=== PATIENT | male | born 1950 | race Caucasian/White ===

== ENCOUNTER 2017-02-03 19:07 | Emergency (ER) | payer MEDICARE, OTHER ==
[2017-02-03 19:19] VITALS: BP 150/84; BMI 42.9
--- NOTE | 2017-02-03 20:45 | PDOC ---
History of Present Illness - General Chief Complaint: Pain, Acute Stated Complaint: BACK PAIN Time Seen by Provider: 02/03/17 19:49 History Source: Patient Exam Limitations: No Limitations - History of Present Illness Initial Comments: 02/03/17 20:54 Chief complaint: Left shoulder and left lateral neck pain History of present illness: Patient is a 66-year-old male with a history of non- insulin-dependent diabetes, hypertension, here today complaining of left shoulder and left lateral neck pain for 20 days that is worsening today. Patient reports that pain is worse with movement of his left shoulder or left lateral neck when turning it towards the left. Patient denies any heavy lifting or any strenuous activities. Patient drives a taxi. Patient has not taken anything for pain. Patient denies any numbness of his left arm or tingling. He denies any shortness of breath. Pt.'s states that he snores a lot at night and use to have a CPAP machine. Timing/Duration: getting worse Severity: moderate (left shoulder, lateral neck for 20 days worse today) Associated Symptoms: reports: denies symptoms Past History - Past Medical History Allergies/Adverse Reactions: Allergies Allergy/AdvReac Type Severity Reaction Status Date / Time No Known Allergies Allergy Verified 02/03/17 19:20 Home Medications: Ambulatory Orders Losartan Potassium 25 mg PO DAILY 02/03/17 Metformin HCl [Glucophage -] 1,000 mg PO BID 02/03/17 Naproxen [Naprosyn -] 500 mg PO BID PRN #14 tablet 02/03/17 Diabetes: Yes (non insulin dependent) HTN: Yes Suicide Attempt (Hx): No - Immunization History Td Vaccination: Yes TDAP Vaccination: Yes Immunization Up to Date: Yes - Psycho/Social/Smoking Cessation Hx Anxiety: No Suicidal Ideation: No Smoking Status: No Smoking History: Never smoked Years of Tobacco Use: 0 Have you smoked in the past 12 months: No Number of Cigarettes Smoked Daily: 0 Cigars Per Day: 0 Information on smoking cessation initiated: No Hx Alcohol Use: No Drug/Substance Use Hx: No Substance Use Type: None Hx Substance Use Treatment: No Review of Systems - Review of Systems Able to Perform ROS?: Yes Constitutional: No: Symptoms Reported HEENTM: No: Symptoms Reported Respiratory: No: Symptoms reported Cardiac (ROS): No: Symptoms Reported ABD/GI: No: Symptoms Reported : No: Symptoms Reported Musculoskeletal: Yes: Joint Pain, Muscle Pain (left shoulder upper arm worse with movement ), Neck Pain (left lateral neck ) Integumentary: No: Symptoms Reported Neurological: No: Symptoms reported *Physical Exam - Vital Signs Last Vital Signs Temp Pulse Resp BP Pulse Ox 150/84 98 02/03/17 19:15 02/03/17 19:15 - Physical Exam General Appearance: Yes: Appropriately Dressed Neck: positive: Tender (left lateral ), Tender lateral (left lateral ). negative: Decreased range of motion, Lymphadenopathy (R), Lymphadenopathy (L), Rigidity, Tender midline Respiratory/Chest: positive: Lungs Clear, Normal Breath Sounds. negative: Chest Tender, Respiratory Distress Cardiovascular: positive: Regular Rhythm, Regular Rate, S1, S2 Musculoskeletal: positive: Normal Inspection. negative: CVA Tenderness, CVA Tenderness (R), CVA Tenderness (L), Vertebral Tenderness Extremity: positive: Normal Capillary Refill, Normal Inspection, Normal Range of Motion, Tender (left shoulder). negative: Swelling Integumentary: positive: Normal Color Neurologic: positive: Alert, Normal Response, Motor Strength 5/5 (upper extremities), Responsive. negative: Respond to painful stimul Procedures - Consent Consent obtained: From Patient - Splinting Progress: 02/05/17 00:10 shoulder immobilizer left arm/shoulder 02/05/17 00:11 Medical Decision Making - Medical Decision Making 02/03/17 21:03 Patient is a 66-year-old male with a history of [id number] diabetes, hypertension, here today complaining of left shoulder and left lateral neck pain for 20 days that is worsening today. Patient reports that pain is worse with movement of his left shoulder or left lateral neck when turning it towards the left. Patient denies any heavy lifting or any strenuous activities. Patient drives a taxi. Patient has not taken anything for pain. Patient denies any numbness of his left arm or tingling. He denies any shortness of breath. Pt.'s states that he snores a lot at night and use to have a CPAP machine. 02/03/17 22:01 left lateral neck pain left shoulder pain PLAN: xray left shoulder no acute abnormality xray spine cervical Straightening of normal cervical curvature hypertrophy of uncinate process of vertebral body, spondylolisthesis of C4-C5, 5-C6, C6-C7. Per Dr. Chaparro toradol 60 mg IM now naprsyn 500 mg bid prn pain follow up with Dr. Dobbins here in 2 days 02/05/17 00:11 *DC/Admit/Observation/Transfer Diagnosis at time of Disposition: Neck pain on left side Degenerative joint disease of cervical spine Qualifiers: Spinal osteoarthritis complication: with radiculopathy Qualified Code(s): M47.22 - Other spondylosis with radiculopathy, cervical region Shoulder pain, left Qualifiers: Chronicity: unspecified Qualified Code(s): M25.512 - Pain in left shoulder - Discharge Dispostion Disposition: HOME Condition at time of disposition: Stable - Prescriptions Prescriptions: Naproxen [Naprosyn -] 500 mg PO BID PRN #14 tablet PRN Reason: Pain - Referrals Referrals: Kathy Daniels MD [Primary Care Provider] - Lucho Dobbins MD [Staff Physician] - - Patient Instructions Additional Instructions: Follow-up with orthopedist on 02/05/[address] Dobbins wear orthoglass splint during the day take off at night return to emergency room for worsening pain or numbness of left arm avoid any strenuous activities or exercise patient voiced understanding of discharge instructions and all questions were answered THANK YOU for coming to [facility] Emergency room for you medical needs Seguimiento con ortopedista el 02/05/[address] Dobbins usar frula ortopdica andreina el da despegue por la noche regreso a la curry de emergencias para empeorar dolor o entumecimiento del brazo dre evitar cualquier actividad extenuante o ejercicio el paciente expres la comprensin de las instrucciones de sybil y todas las preguntas fueron contestadas CARLA por venir a la curry de emergencias de [facility] para braeden necesidades mdicas
[2017-02-03] MEDS ORDERED: KETOROLAC TROMETHAMINE 60 MG/2 ML VIAL IM ONE (20:47)
[2017-02-03] MEDS ORDERED: KETOROLAC TROMETHAMINE 60 MG/2 ML VIAL ONE (20:51)
== END 2017-02-03 22:16 | disposition home or self-care (01) ==
LOC: JERFT 19:07
PROC: 3E0233Z Introduction of Anti-inflammatory into Muscle, Percutaneous Approach (ICD-10-PCS; principal; 2017-02-03)
PROC: 2W3BXYZ Immobilization of Left Upper Arm using Other Device (ICD-10-PCS; 2017-02-03)
DX: M47.22 Other spondylosis with radiculopathy, cervical region (principal); E11.9 Type 2 diabetes mellitus without complications; Z79.84 Long term (current) use of oral hypoglycemic drugs; I10 Essential (primary) hypertension
CPT/HCPCS: 29240; 72050-TC; 73030-TC-LT; 99282-25

== ENCOUNTER 2019-04-27 21:30 | Emergency (ER) | payer OTHER ==
[2019-04-27 21:43] VITALS: BMI 35.9
--- NOTE | 2019-04-27 22:27 | PDOC ---
History of Present Illness - General Chief Complaint: Sore Throat Stated Complaint: NECK PAIN Time Seen by Provider: 04/27/19 21:54 History Source: Patient - History of Present Illness Initial Comments: 04/27/19 22:44 69-year-old male complaining of chest pain for the last 3 days sometimes sharp in nature. Denies nausea, vomiting, diaphoresis, dizziness, fever/ chills. Patient reports that today he has throat pain as well. Patient reports that it feels like a "knot in his throat." Patient has a past medical history of hypertension, diabetes, GERD. Patient is pending endoscopy this week. 04/28/19 01:47 Past History - Past Medical History Allergies/Adverse Reactions: Allergies Allergy/AdvReac Type Severity Reaction Status Date / Time No Known Allergies Allergy Verified 02/03/17 19:20 Home Medications: Ambulatory Orders Losartan Potassium 25 mg PO DAILY 02/03/17 Naproxen [Naprosyn -] 500 mg PO BID PRN #14 tablet 02/03/17 metFORMIN HCL [Glucophage -] 1,000 mg PO BID 02/03/17 Meloxicam [Mobic (Nf) -] 15 mg PO DAILY #30 tablet MDD 15mg 02/26/17 Diabetes: Yes (non insulin dependent) GI Disorders: Yes (GERD) HTN: Yes - Immunization History Td Vaccination: Yes TDAP Vaccination: Yes Immunization Up to Date: Yes - Psycho Social/Smoking Cessation Hx Smoking Status: No Smoking History: Never smoked Years of Tobacco Use: 0 Have you smoked in the past 12 months: No Number of Cigarettes Smoked Daily: 0 Cigars Per Day: 0 Hx Alcohol Use: No Drug/Substance Use Hx: No Substance Use Type: None Hx Substance Use Treatment: No Review of Systems - Review of Systems Able to Perform ROS?: Yes Is the patient limited Wolof proficient: No Constitutional: No: Symptoms Reported, See HPI, Chills, Diaphoresis, Fever, Loss of Appetite, Malaise, Night Sweats, Weakness, Weight Stable, Unintentional Wgt. Loss, Unexplained wgt Loss, Other HEENTM: No: Symptoms Reported, See HPI, Eye Pain, Blurred Vision, Tearing, Recent change in vision, Double Vision, Cataracts, Ear Pain, Ocular Prothesis, Ear Discharge, Nose Pain, Nose Congestion, Tinnitus, Nose Bleeding, Hearing Loss , Throat Pain, Throat Swelling, Mouth Pain, Dental Problems, Difficulty Swallowing, Mouth Swelling, Other *Physical Exam - Vital Signs Last Vital Signs Temp Pulse Resp BP Pulse Ox 98 F 74 20 188/81 H 98 04/27/19 21:39 04/27/19 21:39 04/27/19 21:39 04/27/19 21:39 04/27/19 21:39 - Physical Exam General Appearance: Yes: Appropriately Dressed HEENT: positive: Normal ENT Inspection, Pharyngeal Erythema. negative: Muffled/ Hoarse voice, Tonsillar Exudate, Tonsillar Erythema Neck: negative: Lymphadenopathy (R), Lymphadenopathy (L) Respiratory/Chest: positive: Chest Tender (mild reproducible chest pain), Lungs Clear, Normal Breath Sounds Cardiovascular: positive: Regular Rhythm, Regular Rate Gastrointestinal/Abdominal: positive: Normal Bowel Sounds. negative: Tender, Soft Extremity: positive: Normal Capillary Refill, Normal Inspection, Normal Range of Motion Integumentary: positive: Normal Color, Dry, Warm Neurologic: positive: Fully Oriented, Alert Heart Score/ECG Review - History History: Slightly suspicious - Electrocardiogram EKG: Normal - Age Age: >/= 65 - Risk Factors Risk Factors Heart Score: Yes Hx Hypertension, Yes Hx Diabetes Based on the list above the patient has:: 1-2 risk factors - Troponin Troponin: </= normal limit - Score Heart Score - Total: 3 #2 General ECG Interpretation: Sinus Rhythm - ECG Intrepretation Rhythm: Regular Rhythm Comment:: 04/28/19 00:45 NSR: 75v bpm ED Treatment Course - LABORATORY CBC & Chemistry Diagram: 04/28/19 02:30 04/27/19 22:40 - RADIOLOGY Chest X-Ray Result: No Infiltrates Medical Decision Making - Medical Decision Making 04/28/19 01:46 A: chest pain ; throat pain P: cardiac cbc cmp chest xray rapid strep 04/28/19 03:58 patient reports that he is feeling better. will d/c home . close pcp follow up discussed with patient Discharge - Discharge Information Problems reviewed: Yes Clinical Impression/Diagnosis: Chest pain Qualifiers: Chest pain type: unspecified Qualified Code(s): R07.9 - Chest pain, unspecified Disposition: HOME - Follow up/Referral Referrals: Eden Prajapati MD [Primary Care Provider] - Call tomorrow - Patient Discharge Instructions Patient Printed Discharge Instructions: DI for Chest Pain Additional Instructions: your chest pain work up is negative. it is important t drink plenty of fluids. you may tylenol every 6 hours as needed for pain follow up with your doctor as soon as possible - Post Discharge Activity
[2019-04-27] MEDS ORDERED: ASPIRIN 81 MG CHEWABLE TABLETS PO ONE (22:42)
[2019-04-27 23:08] LABS: BASO % 0.4 % (0-2.0); EOS % 17.4 % (0-4.5); HEMATOCRIT 44.4 % (35.4-49); HEMOGLOBIN 14.8 GM/dL (11.7-16.9); LYMPH % 20.7 % (8-40); MCH 31.2 pg (25.7-33.7); MCHC 33.4 g/dl (32.0-35.9); MEAN CELL VOLUME 93.5 fl (80-96); MEAN PLT VOLUME 8.4 fl (7.5-11.1); MONO % 7.9 % (3.8-10.2); NEUT % 53.6 % (42.8-82.8); PLATELET COUNT 267 K/MM3 (134-434); RBC 4.74 M/mm3 (4.00-5.60); RDW 12.4 % (11.9-15.9)
[2019-04-27] MEDS ORDERED: ASPIRIN COATED 81 MG TABLET.EC ONE (23:15)
[2019-04-27 23:18] LABS: INR 0.93 (0.83-1.09)
[2019-04-27 23:37] LABS: ALBUMIN 3.5 g/dl (3.4-5.0); ALK PHOS 74 U/L (45-117); ANION GAP 8 MMOL/L (8-16); BILIRUBIN,TOTAL 0.2 mg/dL (0.2-1); CHLORIDE 106 mmol/L (98-107); CO2 23 mmol/L (21-32); CREATININE 1.4 mg/dL (0.55-1.3); GLUCOSE,RANDOM 126 mg/dL (74-106); MAGNESIUM 1.7 mg/dL (1.8-2.4); POTASSIUM 4.7 mmol/L (3.5-5.1); SGOT/AST 8 U/L (15-37); SGPT/ALT 16 U/L (13-61); SODIUM 137 mmol/L (136-145); TOT PROT 7.6 g/dl (6.4-8.2)
[2019-04-28] MEDS ORDERED: ACETAMINOPHEN 500 MG TABLET (FP) PO ONE (01:29)
[2019-04-28 01:51] LABS: URINE APPEARANCE CLEAR; URINE BILIRUBIN NEGATIVE (NEGATIVE); URINE COLOR YELLOW; URINE GLUCOSE (UA) NEGATIVE (NEGATIVE); URINE KETONE NEGATIVE (NEGATIVE); URINE LEUK ESTERASE NEGATIVE (NEGATIVE); URINE NITRITE NEGATIVE (NEGATIVE); URINE PROTEIN NEGATIVE (NEGATIVE); URINE UROBILINOGEN 0.2 mg/dL (0.2-1.0)
[2019-04-28] MEDS ORDERED: ACETAMINOPHEN 325 MG TABLET (FP) ONE (02:39)
[2019-04-28 03:02] LABS: BASO % 0.8 % (0-2.0); EOS % 18.9 % (0-4.5); HEMATOCRIT 42.3 % (35.4-49); HEMOGLOBIN 14.1 GM/dL (11.7-16.9); LYMPH % 22.8 % (8-40); MCHC 33.2 g/dl (32.0-35.9); MEAN CELL VOLUME 93.3 fl (80-96); MEAN PLT VOLUME 8.8 fl (7.5-11.1); NEUT % 50.5 % (42.8-82.8); PLATELET COUNT 251 K/MM3 (134-434); RBC 4.53 M/mm3 (4.00-5.60); RDW 12.2 % (11.9-15.9); WHITE BLOOD COUNT 13.6 K/mm3 (4.0-10.0)
[2019-04-28] MEDS ORDERED: FAMOTIDINE 20 MG TABLET PO ONE (03:16)
[2019-04-28] MEDS ORDERED: FAMOTIDINE 10 MG TABLET ONE (03:27)
[2019-04-28 04:18] VITALS: BP 141/74; PULSE 57; TEMP 98.2
--- NOTE | 2019-04-28 09:28 | EKG ---
Test Reason : Blood Pressure : / mmHG Vent. Rate : 075 BPM Atrial Rate : 075 BPM P-R Int : 200 ms QRS Dur : 088 ms QT Int : 356 ms P-R-T Axes : 042 -10 039 degrees QTc Int : 397 ms NORMAL SINUS RHYTHM POSSIBLE ANTERIOR INFARCT , AGE UNDETERMINED ABNORMAL ECG WHEN COMPARED WITH ECG OF 23-APR-2015 09:09, NO SIGNIFICANT CHANGE WAS FOUND Confirmed by MD Braden, Tommy ([id number]) on 04/28/2019 9:27:55 AM Referred By: Confirmed By:Tommy Feliciano MD
== END 2019-04-28 04:34 | disposition home or self-care (01) ==
LOC: JER 21:30
DX: R07.9 Chest pain, unspecified (principal); I10 Essential (primary) hypertension; E11.9 Type 2 diabetes mellitus without complications; Z79.84 Long term (current) use of oral hypoglycemic drugs; K21.9 Gastro-esophageal reflux disease without esophagitis
CPT/HCPCS: 36415; 71046-TC-FY; 80053; 81003; 82550; 83735; 84484; 85025; 85610; 85730; 87070; 87880; 93005; 93010; 99283-25

== ENCOUNTER 2023-10-07 04:18 | Day surgery (SDC) | payer OTHER ==
[2023-10-04 09:53] VITALS: BMI 28.7
[2023-10-07 06:47] VITALS: TEMP 97.8
[2023-10-07] MEDS ORDERED: MIDAZOLAM HCL 2 MG/2 ML SINGLE DOSE VIAL ONE (08:53)
[2023-10-07] MEDS ORDERED: FENTANYL CITRATE/PF 50 MCG/ML VIAL ONE (08:53)
[2023-10-07 09:34] VITALS: RESP 18
[2023-10-07 10:56] VITALS: BP 158/84; PULSE 50
== END 2023-10-07 10:38 | disposition home or self-care (01) ==
LOC: JASU-SURG 04:18
PROVIDERS: ATTEND Urology
PROC: 0TF4XZZ Fragmentation in Left Kidney Pelvis, External Approach (ICD-10-PCS; principal; 2023-10-07 08:30)
DX: N20.0 Calculus of kidney (principal)
CPT/HCPCS: 82962